=== PATIENT | male | born 1950 | race Caucasian/White ===

== ENCOUNTER → 2024-03-24 06:44 | Outpatient (REF) | payer MEDICARE, OTHER, SELFPAY | LOC: MRI 06:44 | PROVIDERS: ATTENDING PHYSICIAN Orthopaedic Surgery; FAMILY PHYSICIAN Family Medicine | DX: M25.562 Pain in left knee (principal) | CPT/HCPCS: 73721 ==

== ENCOUNTER 2024-04-08 22:10 | Inpatient (IN) | payer MEDICARE, OTHER, SELFPAY ==
[2024-04-08] VITALS (9 sets, daily range): BP systolic 105–139; BP diastolic 54–74
[2024-04-08 19:13] LABS: Glucose - Point of Care 59 mg/dl (70-99)
[2024-04-08] MEDS: NSS 1000 IV (19:21)
[2024-04-08 19:22] LABS: % Basophils 0.6 % (0-2); % Eosinophils 3.9 % (0-6); % Immature Granulocytes 0.3 % (0-0.5); % Lymphocytes 26.8 % (20.5-51.1); % Monocytes 9.9 % (1.7-9.3); % Neutrophils 58.5 % (42.2-75.2); Absolute Basophils 0.1 10^3/uL (0-0.2); Absolute Eosinophils 0.4 10^3/uL (0-0.7); Absolute Lymphocytes 2.4 10^3/uL (1.2-3.4); Absolute Monocytes 0.9 10^3/uL (0.1-0.6); Absolute Neutrophils 5.3 10^3/uL (1.4-6.5); Hematocrit 34.2 % (39.0-52.0); Hemoglobin 12.2 g/dL (13.0-18.0); Mean Corp Hgb Conc. 35.7 g/dL (33.0-37.0); Mean Corpuscular Hgb 30.9 pg (27.0-31.0); Mean Corpuscular Volume 86.6 fL (80.0-94.0); Mean Platelet Volume 8.4 fL (7.4-10.4); Nucleated Red Blood Cells % 0 % (-); Platelet Count 200 10^3/uL (130-400); Red Blood Cell Count 3.95 10^6/uL (4.70-6.10); Red Cell Dist. Width 13.2 % (11.5-14.5); White Blood Cell Count 9.1 10^3/uL (4.8-10.8)
[2024-04-08 19:40] LABS: Blood Urea Nitrogen 20 mg/dl (9-20); Calcium 8.6 mg/dl (8.4-10.2); Carbon Dioxide 22 mmol/L (22-30); Chloride 106 mmol/L (98-107); Estimated Creatinine Clearance 98 ml/min; Glucose 56 mg/dl (70-99); Sodium 138 mmol/L (135-145); eGFR > 60.00
[2024-04-08] MEDS: D10W 150 IV (20:00)
--- NOTE | 2024-04-08 20:03 | ED.GENMED ---
History of Present Illness
General
Chief Complaint: Rectal Bleeding
Time Seen by Provider: 04/08/24 19:04
Travel History
Have you had any contact with someone who has COVID-19?: No
Do you have any symptoms of coronavirus? Fever > 100 degrees, chills, cough, shortness of breath, sore throat, loss of taste or smell, muscle aches, or headache?: No
History of Present Illness
History of Present Illness:
73-year-old male with history of insulin-dependent diabetes presents to the emergency department for evaluation of a near syncopal associated with massive rectal bleeding. Patient was out to dinner and states he began to feel lightheaded, felt it
was related to his blood sugar so he attempted to get something to drink however he began to feel profoundly lightheaded and lowered himself to the ground. States he was on the ground for several minutes before developing a large amount of bright
red rectal bleeding arrival to the ER the rectal bleeding is stopped however the patient continues to feel dizzy and lightheaded he does not take anticoagulants but is on baby aspirin daily.
Review of Systems
Review of Systems
Allergies reviewed?: Yes
All Other Systems: ROS reviewed and negative except as documented in HPI and ROS
Phy Exam
Physical Exam
Physical Exam:
GEN: Well appearing, NAD, WDWN
HEENT: Oral mucosa moist, no scleral icterus
Cardiac: Regular rate
Lung: No respiratory distress, no tachypnea
MSK: No gross deformity or injuries
Rectal: Blood in the rectal vault however no active bleeding noted
Skin: Good color, no pallor or jaundice, no rashes
Neuro: AO x3, moves all extremities freely
Psych: Calm, cooperative
Course
Orders/Labs/Results
Orders:
Orders
04/08/24 19:11
Type+Screen Urgent
EKG [Electrocardiogram (*1)] Urgent
Reason for Study: Syncope
EKG- Treatment ONCE
Basic Metabolic Panel Urgent
Complete Blood Count/With Diff Urgent
04/08/24 19:13
CT Abd/pelvis Angio W/wo Iv Urgent
Comment:
Reason For Exam: lower GI hemorrhage
0.9% Sodium Chloride 1000 ml [Nss] 1,000 ml IV BOLUS
04/08/24 19:49
Dextrose 10%/Water 500 ml [D10w] 150 ml IV 150 mls/hr
04/08/24 20:00
Dextrose 10%/Water 500 ml [D10w] 150 ml IV 150 mls/hr
Abnormal Lab Results
04/08/24
19:11
RBC 3.95 L 10^6/uL
(4.70-6.10)
Hgb 12.2 L g/dL
(13.0-18.0)
Hct 34.2 L %
(39.0-52.0)
Absolute Monos (auto) 0.9 H 10^3/uL
(0.1-0.6)
Monocytes % 9.9 H %
(1.7-9.3)
Glucose 56 L mg/dl
(70-99)
POC Glucose 59 L mg/dl
(70-99)
04/08/24 19:11
04/08/24 19:11
Vital Signs
Initial and Last Documented VS:
Initial Vital Signs
Temp Pulse Resp BP Pulse Ox
97.7 F 75 18 120/63 96
04/08/24 19:06 04/08/24 19:06 04/08/24 19:06 04/08/24 19:06 04/08/24 19:06
Last Documented Vital Signs
Temp Pulse Resp BP Pulse Ox
97.7 F 68 12 108/61 98
04/08/24 19:06 04/08/24 21:15 04/08/24 21:15 04/08/24 21:00 04/08/24 21:15
MDM/Problems Addressed
MDM/Problems Addressed:
On arrival patient saturated in blood from the waist down. His syncopal/near syncopal event may have been precipitated by hypoglycemia versus potentially related to lower GI bleeding/vasovagal event. Bleeding ceased on arrival. CTA shows no
evidence for active lower GI hemorrhage. He is clinically stable in the emergency department and will be admitted for further observation and management
*Critical Care Note
Total Time (30-74mins, 75-104mins- exclusive of procedures): Not Applicable
ED Attending Note
-
Portions of this chart may have been created with voice recognition software.� Occasional wrong word or��sound alike� substitutions may have occurred due to the inherent limitations of voice recognition software.
Discharge Plan
Departure
Patient Disposition: Admit
Date of Disposition: 04/08/24
Time of Disposition: 21:24
Admit to: IMU
Presentation/result/management discussed w/ accepting MD/DO: Hospitalist
Discharge Problem:
Acute lower GI bleeding
Prescriptions:
No Action
multivitamin 1 EACH tablet
1 ea PO DAILY
dapagliflozin propanediol [Farxiga] 10 MG tablet
10 mg PO DAILY
rosuvastatin 40 MG tablet
40 mg PO QPM
aspirin 81 MG tablet,chewable
81 mg PO DAILY
Hold Instructions: Resume on 02/17/23.
ferrous sulfate [iron] 325 mg (65 mg iron) Tablet
325 mg PO DAILY
ezetimibe [Zetia] 10 mg Tablet
10 mg PO DAILY
insulin aspart U-100 [Novolog FlexPen U-100 Insulin] 100 unit/mL (3 mL) Insulin Pen
12 unit SC AC
insulin glargine [Lantus Solostar U-100 Insulin] 100 unit/mL (3 mL) Insulin Pen
8 unit SC HS
meloxicam 7.5 mg tablet
7.5 mg PO DAILY
metformin 1,000 MG tablet
1,000 mg PO BIDWMEAL
Interventions
Interventions:
*Risk Screen - Suicide Last Done: 04/08/24 19:06
*General Assessment Last Done: 04/08/24 19:06
*Neglect/Abuse Screening Last Done: 04/08/24 19:06
ED- Fall Risk Assessment Last Done: 04/08/24 19:28
*ED COVID-19 Vaccine History Last Done: 04/08/24 19:06
AX-Nqesjd-Wrhsitukyx Assessment Last Done: 04/08/24 19:30
ED- Cardiac Assessment Last Done: 04/08/24 19:30
ED- Pulmonary Assessment Last Done: 04/08/24 19:30
Discharge Date and Time
Print Language: WOLOF
--- NOTE | 2024-04-08 21:25 | HPS.HSE ---
Family Physician
-
Family Physician:
Chief Complaint
-
lightheaded
rectal bleeding
History of Present Illness
73-year-old male with history of insulin-dependent diabetes presents to the emergency department for evaluation of a near syncopal associated with massive rectal bleeding. Patient was out to dinner, he ate pulled pork. shortly after, he felt the
urge to move bowels, as he was walking to bathroom he felt lightheaded and lowered him self to the floor. he got up again and walked to the bathroom but he developed large amount of red rectal bleed. patient continued to feel dizzy. denied any
abdominal pain, vomiting. denied HENRY, dizzy fever, chills, chest pain, sob. denied chest pain, sob. denied dysuria or hematuria.
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 he has an appt with GI this Saturday for colonoscopy .
hgb stable. admitting for further management.
Medical History
Past Medical History
Past Medical History: Reports Other
Additional Past Medical History:
HLD
bundle branch block
type 2 DM
CAD
Past Surgical History: Reports Other
Additional Past Surgical History:
b/l hip replacement
back surgery
right knee surgery
Social History
Tobacco: Non-smoker
Alcohol: Occasional
Drug: None
Personal:
Living: With Family
Employment: Retired
Family History
Family History: Not pertinent
Allergies / Home Medications
Allergies reflects when Allergies were last updated in [employer].
Home Medications with original date entered in [employer]
Allergy/Medication List:
Allergies
Allergy/AdvReac Type Severity Reaction Status Date / Time
No Known Allergies Allergy Verified 02/12/23 08:11
Home Medications
dapagliflozin propanediol 10 mg tablet (Farxiga) 10 mg PO DAILY Diabetes 03/09/20
multivitamin 1 ea PO DAILY Supplement 03/09/20
aspirin 81 mg chewable tablet 81 mg PO DAILY 11/16/20
rosuvastatin 40 mg tablet 40 mg PO QPM High cholesterol 11/16/20
ezetimibe 10 mg tablet (Zetia) 10 mg PO DAILY High cholesterol 01/23/23
ferrous sulfate 325 mg (65 mg iron) tablet (iron) 325 mg PO DAILY Supplement 01/23/23
insulin aspart U-100 100 unit/mL (3 mL) subcutaneous pen (Novolog FlexPen U-100 Insulin aspart) 12 unit SC AC Diabetes 01/23/23
insulin glargine 100 unit/mL (3 mL) subcutaneous pen (Lantus Solostar U-100 Insulin) 8 unit SC HS Diabetes 01/23/23
meloxicam 7.5 mg tablet 7.5 mg PO DAILY 04/08/24
metformin 1,000 mg tablet 1,000 mg PO BIDWMEAL 04/08/24
Review of Systems
-
Constitutional: Reports No Symptoms
EENT: Reports No Symptoms
Respiratory: Reports No Symptoms
Cardiac: Reports No Symptoms
Abdomen/GI: Reports Bloody Stools
: Reports No Symptoms
Musculoskeletal: Reports No Symptoms
Skin: Reports No Symptoms
Neurological: Reports No Symptoms and Dizzy
Endocrine: Reports No Symptoms
Hematologic/Lymphatic: Reports No Symptoms
Psych: Reports No Symptoms
Physical Exam
Vital Signs
Vital Signs
Temp Pulse Resp BP Pulse Ox
97.7 F 68 12 108/61 98
04/08/24 19:06 04/08/24 21:15 04/08/24 21:15 04/08/24 21:00 04/08/24 21:15
Physical Exam
General: Well Developed, Well Nourished and No Apparent Distress
HEENT: NormoCephalic, Moist mucous membranes and Atraumatic
Respiratory: Clear
Cardiac: S1/S2 and Regular Rhythm; No Murmur or Rub
GI: Soft, Non Tender, Non Distended and Normal Bowel Sounds; No Organomegaly
Rectal: Deferred by Provider
Musculoskeletal: No Clubbing, No Cyanosis and No Edema
Skin: No Rash
Neuro: AO x 3 and Nonfocal/grossly intact
Psych: Calm
Laboratory Results
-
04/08/24 19:11
04/08/24 19:11
Laboratory Results
Total Bilirubin Cancelled 04/08/24 19:11
AST Cancelled 04/08/24 19:11
ALT Cancelled 04/08/24 19:11
Alkaline Phosphatase Cancelled 04/08/24 19:11
Data Reviewed
-
CT Scan: Report Reviewed by me
Lab Data: Labs Reviewed by me
Impression/Plan
-
#lower GI bleed
-hgb 12.2
-CT abdomen pelvis with No CTA evidence for active gastrointestinal bleeding during the course of this exam.Colonic diverticulosis.Minimal cholelithiasis.
-IV PPI daily
-npo
-fluids continued for hydration
-trend H&Hevery 6 hours
-GI consulted
#near syncope likely from GI bleed
-EKG with NSR
-ctm
#type 2 Dm with hypoglycemia
-blood sugar in 50's
-received D10 in ER
-sliding scale
-hold Farxiga, NovoLog,Lantus, metformin
#iron def anemia
-ferrous sulfate continued
#HLD
-statin continued
#DVT prophylaxis
scd
#CODE status
-full code
--- NOTE | 2024-04-08 21:47 | W.PN.UPDATE ---
Update Note
Progress Note Update
This note serves as an addendum to the H&P by systems programmer analyst VICKY Dorcas CLINE
HPI
73M with daily chronic Meloxicam use for spondylolisthesis and Knee OA, KEI on PO Fe, HX CAD on ASA , IDDM on insulin , metformin & dapagliflozin, HLD on Rosuvastatin pw massive BRB rectal bleed while dinning in the restaurant. Denied abdominal
pain bit asociated with profoundly lightheaded almost passed out. Not on OAC but on APL ASA for CAD.
No prior HX GIB
PHX: see HPI
Reviewed VS: Hypotensive 108/60 HR 68
PE
Gen: NAD , not toxic
HEENT: Not pale, no jaundice
Neck: suple
Lungs: CTA
Cor: RRR S1 S2 no mm
Abdomen: Soft non tender abdomen
JARRED by ER AUTO APPRAISER : Blood in the rectal vault however no active bleeding noted
CLERK OF SCALES: AAO3 , NFND
MS: no edema
Psych: appropriate
Data
Hgb 12.2 - baseline was 12- 15
Unremarkable BMP
BG 56
04/08/24 CT Abd/pelvis Angio W/wo Iv
1. No CTA evidence for active gastrointestinal bleeding during the course of this exam.
2. Colonic diverticulosis.
3. Minimal cholelithiasis.
ASSESSMENT & PLAN
Acute painless BRBPR suspect LGI origin DDx: Diverticulosis, AVM
At risk for ACBLA
Hypotensive due to blood loss
So far NEG CTA
- T & S, Blood consented
- Trend H & H q6h
- IV D5NS 80/H
- IV PPI daily
- Held Meloxicam, ASA
- Held all anti HTN Meds
- GI consulted
Mild hypotension due to GIB
HX Essential HTN
-held all OFFICE SERVICES COORDINATOR anti HTN Meds
- Fluid resuscitation
Hypoglycemia
S/P D50
- held all OFFICE SERVICES COORDINATOR Diabetic Meds
- add ISS low and hypoglycemic protocol
- Cortisol random and AM
HX CAD on ASA
- held ASA
HlD
DVT Px: SCD
Code: Full code
IMU
[2024-04-08 22:22] LABS: Glucose - Point of Care 85 mg/dl (70-99)
[2024-04-08] MEDS: D5/0.9% SODIUM CHLORIDE 1000 IV (23:27)
--- NOTE | 2024-04-08 23:35 | PTCARENOTE ---
Pt admitted. aaox3, pleasant, denies pain. Belly soft, nondistended. NSR. RA. Bedrest. IVF running. BS Q6. NPO. Will monitor.
[2024-04-08 23:43] LABS: Glucose - Point of Care 94 mg/dl (70-99)
[2024-04-09] VITALS (12 sets, daily range): BP systolic 119–137; BP diastolic 61–86
[2024-04-09 01:25] LABS: Hematocrit 31.1 % (39.0-52.0); Hemoglobin 11.2 g/dL (13.0-18.0)
[2024-04-09 05:30] LABS: Glucose - Point of Care 146 mg/dl (70-99)
[2024-04-09 05:39] LABS: Hematocrit 30.4 % (39.0-52.0); Hemoglobin 10.6 g/dL (13.0-18.0); Mean Corp Hgb Conc. 34.9 g/dL (33.0-37.0); Mean Corpuscular Hgb 30.7 pg (27.0-31.0); Mean Corpuscular Volume 88.1 fL (80.0-94.0); Mean Platelet Volume 8.5 fL (7.4-10.4); Platelet Count 175 10^3/uL (130-400); Red Blood Cell Count 3.45 10^6/uL (4.70-6.10); Red Cell Dist. Width 13.6 % (11.5-14.5); White Blood Cell Count 7.9 10^3/uL (4.8-10.8)
[2024-04-09 06:03] LABS: Blood Urea Nitrogen 19 mg/dl (9-20); Calcium 8.2 mg/dl (8.4-10.2); Carbon Dioxide 23 mmol/L (22-30); Chloride 107 mmol/L (98-107); Estimated Creatinine Clearance 98 ml/min; Glucose 251 mg/dl (70-99); Potassium 4.1 mmol/L (3.5-5.1); Sodium 138 mmol/L (135-145); eGFR > 60.00
[2024-04-09] MEDS: NOVOLOG FLEXPEN-LOW RESISTANCE SC ×2 (06:26→15:01)
[2024-04-09 06:31] LABS: Cortisol, Random 9.6 ug/dl
--- NOTE | 2024-04-09 07:24 | CON.GI ---
Addendum entered and electronically signed by Naima Cao DO 04/09/24 11:11:
Patient seen and examined independently of POOJA. I agree with her note with my additions below
Micah is a 73-year-old male with history of CAD on aspirin, bundle branch block, diabetes on insulin, recent hip replacement in November who has been on meloxicam for the last month once daily for some knee pain who comes in with symptomatic
painless hematochezia. He has never had anything like this before. Denies any dysphagia, has occasional heartburn, no chronic nausea vomiting abdominal pain. He runs more on the constipated side and moves his bowels every 3 days with the help of
Colace. His last colonoscopy was at least 10 years ago.
He occasionally takes a Tums but is not on PPI.
He was out to eat and felt lightheaded but assumed it was from his glucose however it did not improve with eating then he felt lightheaded, mildly queasy and did not make it to the bathroom. He felt like he was in a pass out and went to the floor
without passing out then had an uncontrollable bloody stool. Again no abdominal pain. He has had no further rectal bleeding. Underwent a CT angio that showed no evidence of active bleeding but did show colonic diverticulosis.
His hemoglobin on admission was 12.2 and this morning is 10.6. Has normal platelets at 175, no coagulation was drawn., Normal BUN at 19, creatinine 0.7, ferritin low at 13, iron saturation 19
Patient states otherwise he is in good shape exercises regularly.
On exam he appears comfortable, no acute distress, abdomen is soft, nontender, no lower extremity edema
# Symptomatic painless hematochezia -
Etiology most likely diverticular bleeding, negative CT angio
Other possible etiologies could be NSAID induced ulcer however he has no pain but has been on daily meloxicam and does take aspirin, not on PPI
Has studies consistent with iron deficiency
Will perform colonoscopy tomorrow, last colonoscopy was over 10 years ago and will add on an upper endoscopy because of his iron studies and in the setting of symptomatic hematochezia
Hold oral iron, currently on once daily PPI, in for colonoscopy prep. His aspirin is currently on hold but that is not necessary.
Original Note:
Consultation
-
Date/Time Consultation Requested: 04/08/242314
Date/Time Consultation Performed: 04/09/24 0820
Requesting Provider: POOJA Sauer
Performing Provider: POOJA Koch, Naima Cao DO
Reason for Consultation: rectal bleeding
Medical History
Chief Complaint / HPI
Chief Complaint: rectal bleeding
History of Present Illness:
Pt is a 73yo presents with hx CAD, BBB, diverticulosis, iron deficiency on iron supplement, gallstones, NIDDM presents with near syncope and massive rectal bleeding after eating dinner at local restaurant. CTA on admission with no evidence of
bleeding and diverticulosis. On admission hbg 12.2 with drop after admission, BUN normal at 20. Pt denies hx prior GI bleeding. Last colonoscopy 10 years ago at [facility] recalls as normal. + Meloxicam use for hx fall and joint pain and daily ASA.
No antacid use.
Pt admits to feeling of dizziness with bleeding. Only 1 episode of bleeding prior to admission without recurrence. He denies dysphagia, GERD, nausea, vomiting, abdominal pain, diarrhea, constipation or black stools.
Past Medical History
Past Medical History: Arrhythmias (Bundle branch block), CAD, Hypercholesterolemia, NIDDM and Other (diverticulosis, gallstones, iron deficiency on chronic iron supplement )
Past Surgical History: Orthopedic (b/l hip replacement, back surgery, right knee surgery)
Social History
Tobacco: Non-Smoker
Alcohol: Occasional
Drug: None
Personal:
Living: With Family
Employment: Retired
Family History
Family History: Other (no family hx colon CA or polyps)
Allergies / Home Medications
Allergy/AdvReac Type Severity Reaction Status Date / Time
No Known Allergies Allergy Verified 02/12/23 08:11
�Medication �Instructions �Recorded
dapagliflozin propanediol 10 mg 10 mg PO DAILY Diabetes 03/09/20
tablet (Farxiga)
multivitamin 1 ea PO DAILY Supplement 03/09/20
aspirin 81 mg chewable tablet 81 mg PO DAILY 11/16/20
rosuvastatin 40 mg tablet 40 mg PO QPM High cholesterol 11/16/20
ezetimibe 10 mg tablet (Zetia) 10 mg PO DAILY High cholesterol 01/23/23
ferrous sulfate 325 mg (65 mg 325 mg PO DAILY Supplement 01/23/23
iron) tablet (iron)
insulin aspart U-100 100 unit/mL 12 unit SC AC Diabetes 01/23/23
(3 mL) subcutaneous pen (Novolog
FlexPen U-100 Insulin aspart)
insulin glargine 100 unit/mL (3 8 unit SC HS Diabetes 01/23/23
mL) subcutaneous pen (Lantus
Solostar U-100 Insulin)
meloxicam 7.5 mg tablet 7.5 mg PO DAILY 04/08/24
metformin 1,000 mg tablet 1,000 mg PO BIDWMEAL 04/08/24
Review of Systems
-
History Source: Patient
Constitutional: Reports No Symptoms
EENT: Reports No Symptoms
Respiratory: Reports No Symptoms
Cardiac: Reports No Symptoms
Abdomen/GI: Reports Bloody Stools
: Reports No Symptoms
Musculoskeletal: Reports No Symptoms
Skin: Reports No Symptoms
Neurological: Reports Dizzy
Endocrine: Reports No Symptoms
Hematologic/Lymphatic: Reports Bleeding
Vital Signs
Temp Pulse Resp BP Pulse Ox
97.7 F 67 13 128/67 97
04/09/24 03:40 04/09/24 06:00 04/09/24 06:00 04/09/24 06:00 04/09/24 06:00
Physical Exam
Exam
General: Well Developed, Well Nourished and No Apparent Distress
HEENT: Normocephalic and Anicteric
Respiratory: Clear
Cardiac: Regular Rhythm
GI: Soft, Non Tender and Non Distended
Musculoskeletal: No Clubbing and No Cyanosis
Skin: Warm and Dry
Neuro: Awake, Alert and AO x 3
Psych: Calm
Results
WBC 7.9 10^3/uL (4.8-10.8) 04/09/24 05:17
Hgb 10.6 g/dL (13.0-18.0) L 04/09/24 05:17
Hct 30.4 % (39.0-52.0) L 04/09/24 05:17
MCV 88.1 fL (80.0-94.0) 04/09/24 05:17
Plt Count 175 10^3/uL (130-400) 04/09/24 05:17
Absolute Neuts (auto) 5.3 10^3/uL (1.4-6.5) 04/08/24 19:11
Sodium 138 mmol/L (135-145) 04/09/24 05:17
Potassium 4.1 mmol/L (3.5-5.1) 04/09/24 05:17
Chloride 107 mmol/L (98-107) 04/09/24 05:17
Carbon Dioxide 23 mmol/L (22-30) 04/09/24 05:17
BUN 19 mg/dl (9-20) 04/09/24 05:17
Creatinine 0.7 mg/dL (0.7-1.3) 04/09/24 05:17
Calcium 8.2 mg/dl (8.4-10.2) L 04/09/24 05:17
Total Bilirubin Cancelled 04/08/24 19:11
AST Cancelled 04/08/24 19:11
ALT Cancelled 04/08/24 19:11
Alkaline Phosphatase Cancelled 04/08/24 19:11
Diagnostic Image Results:
04/08/24 CT Abd/pelvis Angio W/wo Iv
1. No CTA evidence for active gastrointestinal bleeding during the course of this exam.
2. Colonic diverticulosis.
3. Minimal cholelithiasis.
Prior GI Procedures:
EGD: none
Colonoscopy: last 10 years ago [place] recalls as nromal
Assessment / Plan
-
Pt is a 73yo presents with hx CAD, BBB, diverticulosis, iron deficiency on iron supplement, gallstones, NIDDM presents with near syncope and massive rectal bleeding after eating dinner at local restaurant. CTA on admission with no evidence of
bleeding and diverticulosis. On admission hbg 12.2 with drop after admission, BUN normal at 20. Pt denies hx prior GI bleeding. Last colonoscopy 10 years ago at [facility] recalls as normal. + Meloxicam use for hx fall and joint pain and daily ASA.
No antacid use.
-rectal bleeding lower vs less likely upper or SB source
-diverticulosis
-NSAID use
-hx prior low iron on iron supplement
other medical problems:
-CAD
-BBB
-gallstones
-NIDDM
PLAN:
Etiology of bleeding related to lower vs less likely but in differential UGI/SB source with near syncope and NSAID use but BUN normal
no bleeding overnight
hbg drop 12.2 to 10.6 after admission
plan for EGD/colon in AM
ok for clear diet prep later today
trend hbg
cont PPI daily
pt due Gi follow up next week to review for colonoscopy -- appt canceled
NSAID avoidance
pt was on iron will hold with plan for procedure pt had hx iron deficiency on iron supplement for 5 years -- will add iron studies for baseline
-
-
Thank you for consultation and allowing me to participate in the patient's care. Please call the regional coordinator GI physician during the after hours with any questions or concerns.
[2024-04-09] MEDS: FEOSOL 325 MG PO (08:55)
[2024-04-09] MEDS: PROTONIX IV 40 MG IV ×2 (08:56→20:24)
[2024-04-09] MEDS: ZETIA 10 MG PO (08:56)
[2024-04-09] MEDS: NSS (PRESERVATIVE FREE) 10 ML IV ×2 (08:57→20:25)
[2024-04-09 09:52] LABS: Iron 55 ug/dl (49-181)
[2024-04-09 10:01] LABS: Percent Saturation 19 % (20-50); Total Iron Binding Capacity 286 ug/dl (261-462)
--- NOTE | 2024-04-09 10:50 | W.PN.HOSP.TC ---
Today's Communication/Plan
-
Trend H&H
EGD/Colon in am
Assessment / Plan
Assessment / Plan
# Bright red blood per the rectum likely suspected to lower GI bleed versus low likelihood of upper GI
-Trend hemoglobin. Transfuse as needed for hemoglobin less than 7. With acute episode of bleeding
-CT abdomen pelvis with No CTA evidence for active gastrointestinal bleeding during the course of this exam.Colonic diverticulosis.Minimal cholelithiasis.
-IV PPI daily
-Clears for now. Plan for EGD/colon in the morning
-fluids continued for hydration
-GI consulted
#near syncope likely from GI bleed
-Monitor telemetry.
-ctm
#type 2 Dm with hypoglycemia
-blood sugar in 50's on admission. POC is stabilized.
-received D10 in ER
-sliding scale
-hold Farxiga, NovoLog,Lantus, metformin
#iron def anemia
-Iron studies pending. Hold as needed for now.
#HLD
-statin continued
#DVT prophylaxis
scd in setting of GI bleed
#CODE status
-full code
Discussed with spouse at bedside in details
Anticipated Discharge: > 48 hours
Subjective/Interval History
-
Date of Service: April 09, 2024
Denies any abdominal pain
Denies any nausea vomiting
Denies any bright red blood per the rectum
Objective Data
-
Labs:
Laboratory Results
04/09/24 04/09/24 04/09/24
01:14 05:17 13:00
WBC 7.9
Hgb 11.2 L 10.6 L Pending
Hct 31.1 L 30.4 L Pending
Plt Count 175
Sodium 138
Potassium 4.1
Chloride 107
Carbon Dioxide 23
BUN 19
Creatinine 0.7
Glucose 251 H
Calcium 8.2 L
Vital Signs:
Vital Signs
Temp Pulse Resp BP Pulse Ox
98.4 F 68 12 127/68 96
04/09/24 08:00 04/09/24 10:00 04/09/24 10:00 04/09/24 10:00 04/09/24 10:05
I&O
04/08/24 04/09/24 04/10/24
06:59 06:59 06:59
Output Total 575 / 575 500 / 500
Balance -575 / -575 -500 / -500
Physical Exam
-
General: Well Developed and No Apparent Distress
HEENT: Normocephalic, Atraumatic and Moist Mucous Membranes
Respiratory: Clear to Auscultation
Cardiac: Regular Rhythm and S1/S2; Negative Murmur, Rub or Gallop
GI: Soft, Nontender, Nondistended and Normal Bowel Sounds; Negative Organomegaly
Rectal: Deferred by Provider
Musculoskeletal: No Clubbing, No Cyanosis and No Edema
Skin: Negative Rash
Neuro: Awake, AO x 3, No Motor Deficits and Nonfocal/Grossly Intact
Psych: Calm
Data Reviewed
-
Total Time Spent with Patient (in minutes): 55
[2024-04-09] MEDS: DULCOLAX 10 MG PO (11:42)
[2024-04-09 11:45] LABS: Glucose - Point of Care 189 mg/dl (70-99)
--- NOTE | 2024-04-09 13:28 | PN.CDI ---
CDI
- -
CDI:
Physician Documentation Request
Admit Date: 04/08/24 22:10
Dear Doctor Mariaelena,
Clinical Indicators:
Patient admitted with near syncope, likely from GI bleeding.
PMH includes iron deficiency on iron supplement.
04/08 ED report, 'On arrival patient saturated in blood from the waist down. '
Hgb/Hct trend:
04/08/24 04/09/24 04/09/24
19:11 01:14 05:17
Hgb 12.2 L 11.2 L 10.6 L
Hct 34.2 L 31.1 L 30.4 L
Based on the above, could you clarify, in your progress note, which of the following is the most likely type of anemia you are evaluating, monitoring and/or treating?
Acute blood loss anemia with baseline iron deficiency anemia
Iron deficiency anemia only
Other, please specify
Use of terms such as suspected, likely, concern for, or probable (associated with a specific diagnosis that is being evaluated, monitored, or treated as if it exists) are acceptable and can be coded in the inpatient setting, when documented at the
time of discharge.
Thank you,
KAVYA Trevizo RN
CDI Specialist
available via tiger text
Please use your independent medical judgment in providing your response.
[2024-04-09 15:36] LABS: Hematocrit 33.3 % (39.0-52.0); Hemoglobin 11.9 g/dL (13.0-18.0)
--- NOTE | 2024-04-09 16:37 | CM ---
Patient with Dx GI bleed, near syncope, hypoglycemia. Plan colonoscopy tomorrow. Room air. IV PPI.
Met with patient who resides with his Irma in a 2 story house with 2 KEVIN.
The patient has been independent in ADLs and ambulation.
He is active and goes with his to [employer] to work out.
DME - RW, SPC, raised toilet seat
Prior [facility]
No prior SNF.
PCP - Joseph Forman
Pharmacy - [facility]
No CM d/c needs identified.
Plan home.
[2024-04-09] MEDS: CRESTOR 40 MG PO (17:26)
[2024-04-09] MEDS: NULYTELY SOLUTION 4 LITERS PO (17:26)
[2024-04-09] MEDS: NOVOLOG FLEXPEN-LOW RESISTANCE 1 UNITS SC ×2 (17:49→23:27)
[2024-04-09 17:53] LABS: Glucose - Point of Care 166 mg/dl (70-99)
--- NOTE | 2024-04-09 18:26 | PTCARENOTE ---
see nursing assessment. sinus rythym on monitor. colyte prep started. pt has no complaints at this time. tolerating clear liquids.hemoglobin stable.
[2024-04-09 23:18] LABS: Glucose - Point of Care 158 mg/dl (70-99)
[2024-04-10] VITALS (11 sets, daily range): BP systolic 15–154; BP diastolic 60–85; BMI 27.4
[2024-04-10 04:58] LABS: Hematocrit 34.5 % (39.0-52.0); Hemoglobin 12.1 g/dL (13.0-18.0); Mean Corp Hgb Conc. 35.1 g/dL (33.0-37.0); Mean Corpuscular Hgb 30.6 pg (27.0-31.0); Mean Corpuscular Volume 87.1 fL (80.0-94.0); Mean Platelet Volume 8.8 fL (7.4-10.4); Platelet Count 199 10^3/uL (130-400); Red Blood Cell Count 3.96 10^6/uL (4.70-6.10); Red Cell Dist. Width 13.6 % (11.5-14.5); White Blood Cell Count 6.9 10^3/uL (4.8-10.8)
[2024-04-10 05:08] LABS: INR 1.05; PT 13.7 Sec (11.4-14.6)
--- NOTE | 2024-04-10 05:16 | PTCARENOTE ---
Hgb remains stable. Pt AAOx3, able to ambulate to bathroom to have several loose, watery BMs. Pt reports BMs are still brown. SR on monitor. Assessment as documented. Call fagan within reach. Pt ringing appropriately
[2024-04-10 05:23] LABS: Blood Urea Nitrogen 13 mg/dl (9-20); Calcium 8.9 mg/dl (8.4-10.2); Carbon Dioxide 23 mmol/L (22-30); Chloride 106 mmol/L (98-107); Estimated Creatinine Clearance 98 ml/min; Glucose 133 mg/dl (70-99); Potassium 4.6 mmol/L (3.5-5.1); Sodium 138 mmol/L (135-145); eGFR > 60.00
[2024-04-10] MEDS: NOVOLOG FLEXPEN-LOW RESISTANCE 1 UNITS SC (07:11)
[2024-04-10 07:20] LABS: Glucose - Point of Care 153 mg/dl (70-99)
[2024-04-10] MEDS: NSS (PRESERVATIVE FREE) 10 ML IV (09:47)
[2024-04-10] MEDS: PROTONIX IV 40 MG IV (09:54)
[2024-04-10] MEDS: ZETIA PO (09:55)
--- NOTE | 2024-04-10 12:12 | W.PN.HOSP.TC ---
Addendum entered and electronically signed by Nima Ferrell MD 04/10/24 13:11:
Mild acute blood loss anemia with iron deficiency
Original Note:
Today's Communication/Plan
-
Monitor for diet tolerance post procedures
Plan for tentative DC later today
Assessment / Plan
Assessment / Plan
# Bright red blood per the rectum likely suspected to lower GI bleed versus low likelihood of upper GI
-Trend hemoglobin. Transfuse as needed for hemoglobin less than 7 or With acute episode of bleeding
-CT abdomen pelvis with No CTA evidence for active gastrointestinal bleeding during the course of this exam.Colonic diverticulosis.Minimal cholelithiasis.
- PPI daily
-Colonoscopy with 2 nonbleeding colonic angioectasias treated with APC's. Diverticulosis in sigmoid colon and internal hemorrhoids. No active bleeding.
-EGD with normal esophagus. Gastritis. Biopsied. Normal examined duodenum. Biopsied. Recommend PPI daily and outpatient GI follow-up. GI recommending capsule endoscopy as outpatient. Okay for regular diet.
-GI consulted
#near syncope likely from GI bleed
-Monitor telemetry.
-ctm
#type 2 Dm with hypoglycemia
-blood sugar in 50's on admission. POC is stabilized.
-received D10 in ER
-sliding scale
-Restart Farxiga, NovoLog,Lantus, metformin on discharge
#iron def anemia
-Iron studies pending. Hold as needed for now.
#HLD
-statin continued
#DVT prophylaxis
scd in setting of GI bleed
#CODE status
-full code
Anticipated Discharge: Today
Subjective/Interval History
-
Date of Service: April 10, 2024
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
Denies abdominal pain
Objective Data
-
Labs:
Laboratory Results
04/10/24
04:04
WBC 6.9
Hgb 12.1 L
Hct 34.5 L
Plt Count 199
PT 13.7
INR 1.05
Sodium 138
Potassium 4.6
Chloride 106
Carbon Dioxide 23
BUN 13
Creatinine 0.7
Glucose 133 H
Calcium 8.9
Vital Signs:
Vital Signs
Temp Pulse Resp BP Pulse Ox
97.5 F 76 15 124/72 98
04/10/24 07:25 04/10/24 08:00 04/10/24 08:00 04/10/24 06:00 04/10/24 09:09
I&O
04/09/24 04/10/24 04/11/24
06:59 06:59 06:59
Output Total 575 / 575 975 / 975
Balance -575 / -575 -975 / -975
Physical Exam
-
General: Well Developed and No Apparent Distress
HEENT: Normocephalic, Atraumatic and Moist Mucous Membranes
Respiratory: Clear to Auscultation
Cardiac: Regular Rhythm and S1/S2; Negative Murmur, Rub or Gallop
GI: Soft, Nontender, Nondistended and Normal Bowel Sounds; Negative Organomegaly
Rectal: Deferred by Provider
Musculoskeletal: No Clubbing, No Cyanosis and No Edema
Skin: Negative Rash
Neuro: Awake, AO x 3, No Motor Deficits and Nonfocal/Grossly Intact
Psych: Calm
[2024-04-10 12:21] LABS: Glucose - Point of Care 146 mg/dl (70-99)
[2024-04-10] MEDS: NOVOLOG FLEXPEN-LOW RESISTANCE SC (12:34)
--- NOTE | 2024-04-10 13:25 | W.DCSUMMARY ---
Discharge Summary
Discharge Data
Date of Admission: 04/08/24
Date of Discharge: 04/10/24
-
Pending Results: No
Hospital Course
73-year-old male past medical history of diabetes type 2, iron deficiency [place], hyperlipidemia who is presenting with bright red blood per the rectum and near syncope. Patient was evaluated by gastroenterology. Patient underwent CTA which was
negative for acute GI bleeding. Colonic diverticulosis. Patient was eval by GI. H&H was trended. Patient underwent endoscopy and colonoscopy. Colonoscopy with 2 nonbleeding colonic angioectasias treated with APC's. Diverticulosis in sigmoid
colon and internal hemorrhoids. No active bleeding.EGD with normal esophagus. Gastritis. Biopsied. Normal examined duodenum. Biopsied. Recommend PPI daily and outpatient GI follow-up. GI recommending capsule endoscopy as outpatient. Okay for
regular diet. Patient was also hypoglycemic and received IV fluids. His sugar stabilized. Patient was tolerating diet will be discharged home with outpatient GI follow-up.
Discharge Plan
-
Patient Disposition: Home (Routine Discharge)
Discharge Diagnosis/Procedures: GI bleeding likely secondary to colonic angiectasia status post argon plasma coagulation
Status post colonoscopy and endoscopy
Mild acute blood loss anemia with iron deficiency
Condition: Fair
Diet: Diabetic, Carb Controlled
Activity: As tolerated
Driving Restrictions: No driving for 24 hours
Activity Restrictions/Additional Instructions:
Follow-up with gastroenterology for capsule endoscopy and follow the biopsy results.
Referrals:
Joseph Forman MD [Family Provider] -
Amena Hoyos MD [Active] - None (Follow-up biopsy results. Call to make appointment for capsule endoscopy.)
Prescriptions:
New
pantoprazole [Protonix] 40 mg tablet,delayed release (DR/EC)
40 mg PO DAILY Qty: 30 0RF
Continued
multivitamin 1 EACH tablet
1 ea PO DAILY
dapagliflozin propanediol [Farxiga] 10 MG tablet
10 mg PO DAILY
rosuvastatin 40 MG tablet
40 mg PO QPM
aspirin 81 MG tablet,chewable
81 mg PO DAILY
Hold Instructions: Resume on 02/17/23.
ferrous sulfate [iron] 325 mg (65 mg iron) Tablet
325 mg PO DAILY
ezetimibe [Zetia] 10 mg Tablet
10 mg PO DAILY
insulin aspart U-100 [Novolog FlexPen U-100 Insulin] 100 unit/mL (3 mL) Insulin Pen
12 unit SC AC
insulin glargine [Lantus Solostar U-100 Insulin] 100 unit/mL (3 mL) Insulin Pen
8 unit SC HS
metformin 1,000 MG tablet
1,000 mg PO BIDWMEAL
Discontinued
meloxicam 7.5 mg tablet
7.5 mg PO DAILY
Discharge Orders:
Discharge Patient (As Directed); Ordered 04/10/24
Ordered By: Nima Ferrell
Discharge Date and Time
Print Language: PORTUGUESE
--- NOTE | 2024-04-10 16:11 | CM ---
Patient with Dx GI bleed, near syncope, hypoglycemia.
Met with patient and ; both agree to d/c home today. IMM completed. Patient's will provide transport home.
No CM d/c needs identified.
Plan home today.
== END 2024-04-10 17:38 | disposition home or self-care (01) | DRG 378 ==
LOC: IMU 22:10
PROVIDERS: Internal Medicine Gastroenterology; Nurse Practitioner Adult Health; Physician Assistant; Registered Nurse; ADMITTING PHYSICIAN Internal Medicine; ATTENDING PHYSICIAN Hospitalist; CONSULT PHYSICIAN Internal Medicine; EMERGENCY PHYSICIAN Emergency Medicine; FAMILY PHYSICIAN Family Medicine
PROC: 0DB68ZX Excision of Stomach, Via Natural or Artificial Opening Endoscopic, Diagnostic (ICD-10-PCS; 2024-04-10)
PROC: 0W3P8ZZ Control Bleeding in Gastrointestinal Tract, Via Natural or Artificial Opening Endoscopic (ICD-10-PCS; 2024-04-10)
DX: K55.21 Angiodysplasia of colon with hemorrhage (principal); D62 Acute posthemorrhagic anemia; K57.30 Diverticulosis of large intestine without perforation or abscess without bleeding; K64.8 Other hemorrhoids; D50.9 Iron deficiency anemia, unspecified; E11.649 Type 2 diabetes mellitus with hypoglycemia without coma; E78.00 Pure hypercholesterolemia, unspecified; I25.10 Atherosclerotic heart disease of native coronary artery without angina pectoris; K80.20 Calculus of gallbladder without cholecystitis without obstruction; M43.10 Spondylolisthesis, site unspecified; I95.9 Hypotension, unspecified; I10 Essential (primary) hypertension; K29.70 Gastritis, unspecified, without bleeding; I45.4 Nonspecific intraventricular block; Z79.82 Long term (current) use of aspirin; Z79.4 Long term (current) use of insulin
CPT/HCPCS: 88305; 74174; 80048; 82533; 82728; 82962; 83036; 83540; 83550; 85014; 85018; 85025; 85027; 85610; 86850; 86900; 86901; 88342; 93005; 96361; 96374; 99285; Q9967